=== PATIENT | male | born 1970 | race African-American/Black ===

== ENCOUNTER 2018-04-23 10:19 | Emergency (ER) | payer OTHER ==
[2018-04-23 10:35] VITALS: PULSE 87; TEMP 98.1; BMI 28.5
[2018-04-23] MEDS ORDERED: KETOROLAC TROMETHAMINE 60 MG/2 ML VIAL IM ONE (11:03)
[2018-04-23] MEDS ORDERED: METHOCARBAMOL 500 MG TABLET PO ONE (11:05)
--- NOTE | 2018-04-23 11:07 | PDOC ---
Attending Attestation - Resident Resident Name: DawnrylieeliaRoque - ED Attending Attestation I have performed the following: I have examined & evaluated the patient, The case was reviewed & discussed with the resident, I agree w/resident's findings & plan, Exceptions are as noted - HPI HPI: 04/23/18 10:58 47yo M hx sleep apnea, HTN, cervical spinal stenosis c/b chronic numbness to R distal extremity presents with 4 days of worsening pain shooting down the R arm. Pt reports he always has pain but it has been worse since running out of his medications. Pt reports moving to the area from [place] recently and ran out of gabapentin. He saw a family physician 2 days ago who refilled gabapentin but he does not remember the name of the physician. Pain has only minimally improved with gabapentin. Reports chronic numbness and tingling to R fingers 3-5 that he states is worse when he turns his head to the right. Denies any worsening numbness, weakness or tingling recently. Denies recent trauma. Denies any other sxs of fevers, chills, cp, sob, headache, abd pain, LE edema or pain. - Physicial Exam PE: 04/23/18 11:08 GENERAL: Awake, alert, and fully oriented, in no acute distress HEAD: No signs of trauma EYES: PERRLA, EOMI, sclera anicteric, conjunctiva clear NECK: Normal ROM, supple, no lymphadenopathy, JVD, or masses BACK: No midline cervical, thoracic, or lumbar ttp LUNGS: Breath sounds equal, clear to auscultation bilaterally. No wheezes, and no crackles HEART: Regular rate and rhythm, normal S1 and S2, no murmurs, rubs or gallops ABDOMEN: Soft, nontender, normoactive bowel sounds. EXTREMITIES: Normal range of motion, no edema. No cords, erythema, or tenderness NEUROLOGICAL: Normal speech, cranial nerves intact, 5/5 strength in UE and LE b /l. Mildly diminished sensation to fingers 3-5 (patient states it is baseline). Normal sensation elsewhere. SKIN: Warm, Dry, normal turgor, no rashes or lesions noted. - Medical Decision Making 04/23/18 11:22 47yo M presents to the ED with acute on chronic neck pain radiating to the RUE consistent with cervical radiculopathy. No new neuro deficits. Plan to control pain, and reassess. BP elevated on arrival, states his BP is always elevated and he was prescribed his BP med by the family doctor but he hasn't taken it yet. Pt advised to take BP meds. 04/23/18 12:20 Pt feeling better with toradol and robaxin. Rpt BP 151/99. Pt will take his BP mdication at home.Requests DC home. I discussed the physical exam findings, ancillary test results and final diagnoses with the patient. I answered all of the patient's questions. The patient was satisfied with the care received and felt comfortable with the discharge plan and treatment plan. The patient will call their primary care physician within 24 hours to arrange follow-up and will return to the Emergency Department with any new, persistent or worsening symptoms.
[2018-04-23] MEDS ORDERED: KETOROLAC TROMETHAMINE 60 MG/2 ML VIAL ONE (11:12)
[2018-04-23] MEDS ORDERED: METHOCARBAMOL 500 MG TABLET ONE (11:12)
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
[2018-04-23 12:00] VITALS: BP 151/99
== END 2018-04-23 12:03 | disposition home or self-care (01) ==
LOC: FER 10:19
PROC: 3E0233Z Introduction of Anti-inflammatory into Muscle, Percutaneous Approach (ICD-10-PCS; principal; 2018-04-23)
DX: M50.20 Other cervical disc displacement, unspecified cervical region (principal); F17.210 Nicotine dependence, cigarettes, uncomplicated; I10 Essential (primary) hypertension
CPT/HCPCS: 99282-25

== ENCOUNTER 2018-04-29 14:07 | Emergency (ER) | payer OTHER ==
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
[2018-04-29 14:42] VITALS: BP 150/80; PULSE 65; TEMP 97.8; BMI 28.5
[2018-04-29] MEDS ORDERED: LIDOCAINE 5% TOPICAL PATCH TP ONE (14:59)
[2018-04-29] MEDS ORDERED: LIDOCAINE 5% TOPICAL PATCH ONE (15:13)
[2018-04-29] MEDS ORDERED: DEXAMETHASONE SOD PHOSPHATE 4 MG/1 ML VIAL IM ONE (15:22)
[2018-04-29] MEDS ORDERED: DEXAMETHASONE SOD PHOSPHATE 4 MG/1 ML VIAL ONE (15:23)
--- NOTE | 2018-04-29 17:30 | PDOC ---
Attending Attestation - Resident Resident Name: Jennifer Reddy - ED Attending Attestation I have performed the following: I have examined & evaluated the patient, The case was reviewed & discussed with the resident, I agree w/resident's findings & plan, Exceptions are as noted - HPI HPI: 04/29/18 17:26 Reviewed Residents HPI - Physicial Exam PE: 04/29/18 17:26 Reviewed Residents PE - Medical Decision Making 04/29/18 17:28 47 years old with chronic neck pain with radiculopathy from an injury sustained in 2010? Patient has seen several doctors since then most recent imaging approximately 1 month ago which showed disc herniation with nerve compression He has some slight numbness and tingling to his right pinky and ring finger which has been chronic. Recently he is moved up here to [place] and is scheduled for spine follow-up next week. He is currently on gabapentin Soma and naproxen complaining of no significant improvement in symptomatology her pain relief with these medications No recent steroids. Patient does not want opiates. We'll substitute naproxen for Medrol Dosepak One dose IM Decadron given in ED He will follow up with orthopedics next week He will return to ED for any severe worsening symptoms or for any concerns
[2018-04-29] MEDS ORDERED: LIDOCAINE PATCH REMOVAL MC SCH (22:00)
== END 2018-04-29 15:48 | disposition home or self-care (01) ==
LOC: FER 14:07 → SUPCPDRO 14:07 → FER 15:48
PROC: 3E033NZ Introduction of Analgesics, Hypnotics, Sedatives into Peripheral Vein, Percutaneous Approach (ICD-10-PCS; principal; 2018-04-29)
DX: M54.2 Cervicalgia (principal); I10 Essential (primary) hypertension; G47.30 Sleep apnea, unspecified; M50.221 Other cervical disc displacement at C4-C5 level
CPT/HCPCS: 96374; 99282-25